=== PATIENT | female | born 1975 | race Caucasian/White ===

== ENCOUNTER 2016-07-10 07:51 | Day surgery (SDC) ==
[2015-12-31 11:46] VITALS: BMI 28.3
[2016-07-10 08:11] VITALS: BP 112/66; TEMP 98
[2016-07-10] MEDS ORDERED: LIDOCAINE 1%-EPI 1:100,000 10 ML (SURGERY) INJ ONE (09:08)
== END 2016-07-10 10:10 | disposition home or self-care (01) ==
LOC: SURG 07:51
PROVIDERS: ATTEND General Practice
DX: L82.1 Other seborrheic keratosis (principal); I78.1 Nevus, non-neoplastic; D22.5 Melanocytic nevi of trunk; D22.62 Melanocytic nevi of left upper limb, including shoulder
CPT/HCPCS: 11200